=== PATIENT | female | born 1930 | race Caucasian/White ===

== ENCOUNTER 2016-08-23 01:16 | Inpatient (IN) | payer MEDICARE, BC ==
[~2016-08-23] VITALS: Ht 157.5 cm; Wt 62.9 kg
--- NOTE | ~2016-08-23 | CON ---
PATIENT'S NAME: AIDEN METZ [facility] AGE: 86 Y [address] ROOM: [place] [address] LOCATION: [facility] ADMIT DATE: 08/23/2016 Consultation DISCHARGE DATE: FAMILY PHYSICIAN: PHYSICIAN, UNKNOWN ATTENDING PHYSICIAN: YENNY DANIELS V DATE OF CONSULTATION: 08/23/2016 REFERRING PHYSICIAN: KLAUS RODRIGUEZ MD CHIEF COMPLAINT: Right parietal intraparenchymal hemorrhage, T12 compression fracture. HISTORY OF PRESENT ILLNESS: The patient is an 86-year-old female patient who had a fall a few days ago that resulted in acute T12 compression fracture, was found on noncontrast CT head that was done yesterday to have a large right parietal intraparenchymal hemorrhage. The patient was receiving treatment at [facility]. Over there, she was treated for fracture pain. She was diagnosed to have non- STEMI myocardial infarct. Cardiac catheterization was done, and bare-metal stents were inserted. The patient was given Plavix for the procedure and subsequently was continued on Plavix and aspirin. Yesterday, the patient started having confusion. It was felt that it could be related to Lyrica and pain medications. The confusion worsened. Eventually, noncontrast CT head was done, and that showed the hemorrhage. I was contacted. I discussed the case with the referring physician. I recommended transferring the patient over for further investigations as well as holding the Plavix and aspirin. I met the patient on the neurotrauma unit. She was confused. History gathering from the patient herself was limited. I relied on the referral notes and the admitting physician's note. REVIEW OF SYSTEMS: Unobtainable given the patient's confusion. MEDICATIONS: Listed in the patient's chart. Essentially, this patient was on: 1. Plavix. 2. Aspirin. 3. Xarelto was added as well. PAST MEDICAL AND SURGICAL HISTORY: Degenerative spine disease, DVT, PE, on chronic anticoagulation. FAMILY HISTORY: Reviewed and noncontributory to the patient's presentation. PATIENT'S NAME: AIDEN METZ [facility] AGE: 86 Y [address] ROOM: [place] [address] LOCATION: [facility] ADMIT DATE: 08/23/2016 Consultation DISCHARGE DATE: FAMILY PHYSICIAN: PHYSICIAN, UNKNOWN ATTENDING PHYSICIAN: YENNY DANIELS V SOCIAL HISTORY: Ex-smoker. Lives in an assisted living facility. ALLERGIES: LISTED IN THE PATIENT'S CHART. PHYSICAL EXAMINATION: GENERAL: The patient is confused. She is cooperative. VITAL SIGNS: Systolic blood pressure is less than 160. Afebrile. HEENT: Head: Atraumatic. The pupils are 3 mm and reactive. Sclerae examination is normal. NECK: No tenderness to palpation. No palpable masses. RESPIRATORY: She is not in any respiratory distress. CARDIOVASCULAR: She has palpable pulses in the upper extremities. BACK: Not done. NEUROLOGIC: She is alert and oriented only to herself. Pupils are 3 mm and reactive. Face is symmetric. Naming is limited. She follows simple commands. She has mild weakness in the left upper and lower extremities. Sensory examination is not reliable. INVESTIGATIONS: 1. Noncontrast CT head done at [facility] on August 22, 2016, which I personally reviewed. It showed evidence of a large right parietal intraparenchymal hemorrhage with moderate dutch-hemorrhage edema. No evidence of fractures. It also showed evidence of age-related global brain atrophy. 2. Lumbar spine x-ray done on August 18, 2016, which I personally reviewed. It showed evidence of multilevel lumbar degenerative disk disease. It showed evidence of T12 and L4 compression fractures. It also showed evidence of L4-5 degenerative spondylolisthesis. 3. Noncontrast CT head done at our hospital on August 23, 2016, at 11 a.m. Again, it showed large right parietal intraparenchymal hemorrhage. No significant change in the size of the hemorrhage. No other hemorrhages were seen. IMPRESSION AND PLAN: An 86-year-old female patient who had a fall a few days ago that resulted in T12 and L4 compression fractures. Also had non-ST elevation myocardial infarction heart attack for which bare-metal stents were inserted at [facility]. The patient was started on aspirin and Plavix, and Xarelto was added. She was confused yesterday, and a noncontrast CT head showed large right parietal intraparenchymal hemorrhage. The etiology of the hemorrhage can be due to anticoagulation, as a result of trauma, or hypertension related. [facility] 86 Y [address] ROOM: [id number] [place], [place] [address] LOCATION: [facility] ADMIT DATE: 08/23/2016 Consultation DISCHARGE DATE: FAMILY PHYSICIAN: PHYSICIAN, UNKNOWN ATTENDING PHYSICIAN: YENNY DANIELS V I discussed the situation with the patient's son (Anthony) who is the power of sports attorney. I clearly indicated that his mother's situation is complicated given the recent insertion of bare-metal stents and the large right parietal hemorrhage. I recommended right craniotomy and evacuation of the hematoma to be done as soon as possible. I discussed the surgery itself, the benefits, and all the risks associated with it. I also discussed hospital stay and recovery. I also discussed the postoperative course which will include repeating the noncontrast CT head. If the postoperative noncontrast CT head showed no rebleeding, then the patient will be started on aspirin to try to prevent in-stent thrombosis and another myocardial infarct. The patient's son asked appropriate questions, and those were answered to his satisfaction. He was interested in proceeding with surgery, so the surgery is scheduled on August 24, 2016, I also ordered thoracic and lumbar spine CT scans to better assess the T12 and L4 compression fractures. If the patient is very symptomatic from those fractures, then she may benefit from T12 and possible L4 vertebroplasty. It was a pleasure taking care of this patient, and thank you for having us involved. MD SYDNIE SIMMONS/christianne /[id number] CC: Yenny Daniels MD d: 08/23/16 1225 t: 08/24/16 1639, CONSULTATION REPORT
--- NOTE | ~2016-08-23 | OR ---
PATIENT'S NAME: BECKY PEREZE [facility] AGE: 86 Y [address] ROOM: [place] [address] LOCATION: [facility] ADMIT DATE: 08/23/2016 OR/Procedure Report DISCHARGE DATE: FAMILY PHYSICIAN: Trudy Raymond MD ATTENDING PHYSICIAN: YENNY DANIELS V SURGEON: Yannick Teague MD FRANCHISE SALES MANAGER: DATE OF PROCEDURE: 08/24/2016 ANESTHESIOLOGIST: Young Ortiz MD ANESTHESIA: General. COMPLICATIONS: None. ESTIMATED BLOOD LOSS: Minimal. PREOPERATIVE DIAGNOSIS: Large right parietal intraparenchymal hemorrhage. POSTOPERATIVE DIAGNOSIS: Large right parietal intraparenchymal hemorrhage. PROCEDURES PERFORMED: 1. Stealth navigation system for evacuation of right parietal intraparenchymal hemorrhage. 2. Right parietal craniotomy and evacuation of intraparenchymal hemorrhage. CLINICAL HISTORY: The patient is an 86-year-old female patient who was initially admitted to [facility] with a main diagnosis of T12 compression fracture. She was transferred to our hospital on August 23, 2016, after a noncontrast CT head showed large right parietal intraparenchymal hemorrhage. Apparently, the patient had non-STEMI at [facility] for which cardiac catheterization and stent placement was done. She was given a loading dose of Plavix during the procedure and continued on Plavix and aspirin afterward. She started having confusion and headaches, and the CT scan showed the hemorrhage. The patient's neurological examination was remarkable for confusion, disorientation, mild left-sided weakness, and left- sided neglect. The patient had repeat a noncontrast CT head, and that showed mild increase in the size of the hemorrhage. I discussed the situation with the family. I discussed the treatment options. Given the recent placement of bare-metal stents and the need for antiplatelet therapy, I recommended the above-mentioned surgery to try to evacuate the hematoma and hopefully, if no rebleeding found on postoperative imaging, the patient will be started on aspirin first and hopefully Plavix later. I discussed the risks and benefits. The patient's family were interested in proceeding. Signed informed consent was obtained, and the patient was brought for surgery. [facility] 86 Y [address] ROOM: [id number] [place] [id number] LOCATION: [facility] ADMIT DATE: 08/23/2016 OR/Procedure Report DISCHARGE DATE: FAMILY PHYSICIAN: Trudy Raymond MD ATTENDING PHYSICIAN: YENNY DANIELS V DESCRIPTION OF PROCEDURE: The patient was seen in the preoperative care unit, and the correct side was marked. Then, she was transferred to the main operating theater, was given general anesthetic, and underwent endotracheal intubation without complications. Preoperative antibiotics and mannitol were given. Calf compressors, Smith catheter, arterial line, and a central line were used throughout the procedure. The patient was positioned in a semilateral position with the right side up. The patient's head was clamped in 3-pins Diane and secured to the table. The right parietal scalp was exposed. Then, the patient was registered to the enGreet navigation system with good accuracy. I navigated the extent of the hematoma on the scalp, and based on that, a linear incision was marked. Hair overlying the incision was clipped off. Surgical site was prepped and draped as per usual. The proposed skin incision was infiltrated with 0.25% Marcaine with epinephrine. Skin was sharply opened down to the bone, and skin flaps were reflected anterior and posterior. Again, the Stealth was used to navigate the hematoma extent on the skull, and based on that, one bur hole was fashioned down to the dura. Then, the bone flap was turned and elevated without complications. I then navigated the extent of the hematoma on the dura. Then, the dura was opened in a cruciate fashion. Then, I proceeded to the hematoma evacuation. The corticotomy site was navigated using the Stealth. Then, using bipolar and suction, a corticotomy was made and deepened. Immediately, I came across a very large hematoma. The hematoma was completely evacuated using suction and cautery. As expected, I got into the atrium/occipital horn of the left lateral ventricle, and that entry was sealed using DuraGen. I was satisfied with the hematoma evacuation, so I proceeded to hemostasis and closure. The wound was copiously irrigated. The wound was lined up with Surgicel. Then, the dura was approximated with 4-0 Nurolon. DuraGen was placed on the dura. Bone flap was anchored to the skull with titanium plates and mini screws. The wound was then washed with bacitracin irrigation. The skin was then closed in layers with 2-0 Vicryl to the galea and nimo for the skin. Sterile dressing was applied. At the end of the operation, the instrument and sponge counts were correct. The patient tolerated the operation without any complications. YANNICK TEAGUE MD PATIENT'S NAME: JOHANNA PEREZ [facility] AGE: 86 Y [address] ROOM: [place] [address] LOCATION: [facility] ADMIT DATE: 08/23/2016 OR/Procedure Report DISCHARGE DATE: FAMILY PHYSICIAN: Trudy Raymond MD ATTENDING PHYSICIAN: YENNY DANIELS/christianne /[id number] CC: MD Trudy Guy MD d: 08/24/16 1726 t: 08/25/16 0921, OPERATIVE SUMMARY
--- NOTE | ~2016-08-23 | HP ---
PATIENT'S NAME: JOHANNA PEREZ [facility] AGE: 86 Y [address] ROOM: [id number] [place], [place] [address] LOCATION: [facility] ADMIT DATE: 08/23/2016 History & Physical DISCHARGE DATE: FAMILY PHYSICIAN: PHYSICIAN, UNKNOWN ATTENDING PHYSICIAN: YENNY DANIELS V DATE OF SERVICE: CHIEF COMPLAINT: Transfer for higher level of care. HISTORY OF PRESENT ILLNESS: The patient is an 86-year-old female with past medical history further described below. The patient is being transferred here from [facility]. She initially presented to [facility] several days ago after sustaining a fall with an acute T12 fracture. The patient was evaluated by Spine Surgery at that point, and no surgical interventions were offered. In the course of the hospital stay, the patient was complaining of chest pain and was found to have a non-STEMI. At this point, she was on Coumadin for history of PE. Coumadin was discontinued and reversed. She received aspirin and a loading dose of 300 mg of Plavix and has undergone a cardiac catheterization with placement of a bare-metal stent 2 days ago. Aspirin and Plavix were continued. The patient was already observed to be somewhat altered, but that was described to delirium/medication effects from Lyrica, fentanyl, and Ambien. The patient is on this regimen for severe spinal stenosis. Her delirium did not improve. Last night, the patient developed a run of atrial fibrillation with rapid ventricular response. She did not receive any beta blockers due to a prolonged first-degree AV block, but she was started on Xarelto. Her delirium worsened, and a stat CAT scan of her head was ordered and read at approximately 11:30 p.m. last night, which is 4 hours from now. She was found to have a large 4.6 x 2.7 cm right parietal intraparenchymal hemorrhage with local edema and mass effect but no shift. The patient was discussed with Dr. Teague, who accepted her transfer and requested a hospitalist admission. At this point, the patient is being seen on neurotrauma soon after her arrival. She is complaining of headache as well as nausea, albeit nausea has improved. Denies any chest pain, shortness of breath, or palpitations. REVIEW OF SYSTEMS: All systems have been reviewed and are negative aside from pertinent positives mentioned above. [facility]GE: 86 Y [address] ROOM: [place] [address] LOCATION: [facility] ADMIT DATE: 08/23/2016 History & Physical DISCHARGE DATE: FAMILY PHYSICIAN: PHYSICIAN, UNKNOWN ATTENDING PHYSICIAN: YENNY DANIELS V PAST MEDICAL HISTORY: 1. Degenerative spine disease, chronic pain. 2. 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 SOCIAL HISTORY: The patient was a smoker and quit approximately 20 years ago. She was living independently until several weeks ago when she moved into assisted living facility. FAMILY HISTORY: Reviewed and noncontributory due to advanced age and known underlying etiology for her presentation. HOME MEDICATIONS: 1. Fentanyl patch 25 mcg. 2. Vitamin D3. 3. Robitussin. 4. PreserVision. 5. Pantoprazole. 6. MiraLAX. 7. Nitroglycerin. 8. Lyrica 150 b.i.d. 9. Lexapro 20. 10. Imodium. 11. Ibuprofen. 12. Hyoscyamine. 13. Hydrocodone. 14. Acetaminophen. 15. Coumadin. 16. Aleve. 17. Aggrenox. 18. Clobetasol. 19. Calcium with vitamin D. 20. Ambien. PHYSICAL EXAMINATION: VITAL SIGNS: At this point, her blood pressure is 150/80, heart rate is in the 80s, saturating 96% on 2 L nasal cannula, afebrile, respirations 16. GENERAL: Appears as an elderly and frail female, in no acute distress. NEUROLOGICAL: The patient is alert and oriented to herself and place and is able to tell me the year. She is also appropriate and answering some questions but not all. Her strength is 4/5 on her right upper extremity proximally and distally, and 4/5 on her right lower extremity proximally and distally, 5/5 on the left side. There is no fixed gaze. No significant neglect. PATIENT'S NAME: JOHANNA PEREZ [facility] AGE: 86 Y [address] ROOM: [place] [address] LOCATION: [facility] ADMIT DATE: 08/23/2016 History & Physical DISCHARGE DATE: FAMILY PHYSICIAN: PHYSICIAN, UNKNOWN ATTENDING PHYSICIAN: YENNY DANIELS V EYES: Show pupils are equal and reactive to light. LYMPHATIC: Shows no cervical lymphadenopathy. ENDOCRINE: Shows no thyromegaly. LUNGS: Clear to auscultation. HEART: Reveals regular rate and rhythm with 2/6 harsh systolic murmur. There is no jugular venous distention or lower extremity edema. GI: Abdomen is soft, nontender, nondistended. : No costovertebral angle tenderness. VASCULAR: Shows 2+ pedal pulses. MUSCULOSKELETAL: Shows tenderness to palpation over her lumbar and thoracic spine. 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 PSYCHIATRIC: Reveals appropriate mood, cognition, affect. REVIEW OF STUDIES: Significant for recent CAT scan with the findings as described in the HPI. ASSESSMENT AND PLAN: This is an 86-year-old female admitted with: 1. Intracerebral hemorrhage; I have discussed the management with Dr. Teague, and at this point, we will monitor the patient's neurologic status and repeat a CAT scan in the morning. We have discussed potentially giving her platelets given recent Plavix loading dose and maintenance therapy, though would like to get an input from Cardiology first. 2. Non-ST elevation myocardial infarction, status post bare-metal stent. I have placed a call with [facility] regarding guidance for anti-platelet agents in this complicated clinical scenario, but I have not heard back yet. We will request a Cardiology consultation in the morning to help us manage her non-ST elevation myocardial infarction as well as atrial fibrillation as well as first-degree atrioventricular block. 3. T12 fracture. We will provide the patient with symptomatic support. 4. Encephalopathy due to intracerebral hemorrhage. We will monitor neurologic status. 5. Symptomatic support. We will provide her with a Smith catheter and antiemetics and Tylenol for her headache. 6. Goals of care. I have inquired about goals of care, and the family would like her to be DNR, and the patient actually confirmed that, and we will respect those wishes. Additional management will depend on clinical course. Time dedicated to this patient's encounter is 35 minutes. PATIENT'S NAME: JOHANNA PEREZ [facility] AGE: 86 Y [address] ROOM: [place] [address] LOCATION: [facility] ADMIT DATE: 08/23/2016 History & Physical DISCHARGE DATE: FAMILY PHYSICIAN: PHYSICIAN, BRYAN ATTENDING PHYSICIAN: YENNY DANIELS V MD MILLIE TELLO/modl /[id number] D: [id number] T: [id number] HISTORY & PHYSICAL
--- NOTE | ~2016-08-23 | DS ---
PATIENT'S NAME: JOHANNA PEREZ [facility] AGE: 86 Y [address] ROOM: [place] [address] LOCATION: [facility]U ADMIT DATE: 08/23/2016 Discharge Summary DISCHARGE DATE: 09/04/2016 FAMILY PHYSICIAN: Trudy Raymond MD ATTENDING PHYSICIAN: Delgado Escobar V CONSULTING PHYSICIANS: Dr. Teague, Neurosurgery and Jefferson Hahn APRN, Cardiology for Dr. Karen Mac. DISCHARGE DIAGNOSES: 1. Large right parietal intraparenchymal hemorrhage, status post craniotomy for evacuation on 09/03/2016. 2. Escherichia coli urinary tract infection, status post treatment. 3. Coronary artery disease/non-ST elevation myocardial infarction, status post bare mental stent placement. 4. Paroxysmal atrial fibrillation, long-term anticoagulation currently held. 5. History of deep venous thrombosis and pulmonary embolism, not currently anticoagulated given history of bleed. 6. T12 and L4 compression fracture, stable. 7. Degenerative spine disease, chronic pain. 8. Chronic hypoxic respiratory failure, on chronic O2 of 2 L. DISCHARGE MEDICATIONS: 1. ASA 81 mg daily. 2. Lipitor 20 mg p.o. q.h.s. 3. B-complex one tablet p.o. daily. 4. Calcium with vitamin D3, 500 mg p.o. daily. 5. Vitamin D 1000 units p.o. daily. 6. Plavix 75 mg p.o. daily. 7. Colace 100 mg p.o. b.i.d. 8. Lexapro 20 mg p.o. daily. 9. Hyoscyamine sulfate 0.375 mg p.o. q.12 hours p.r.n. secretions. 10. Multivitamin 1 tablet p.o. daily. 11. Seville-3 fish oil 1000 mg p.o. daily. 12. Protonix 40 mg p.o. b.i.d. 13. MiraLAX 17 g p.o. b.i.d. 14. Lyrica 50 mg p.o. twice daily. 15. Lyrica 50 mg two tablets p.o. q.a.m. 16. Tylenol 325 mg two tablets every 4 hours p.r.n. for pain or fever. 17. Florastor 250 mg p.o. twice daily for additional two weeks. GI prophylaxis. 18. [place] 5/325 one tablet every 4 hours p.r.n. pain. 19. Mylanta 20 mL p.o. q.4 hours p.r.n. indigestion. 20. Artificial Tears q.i.d. p.r.n. dry eye. 21. Dulcolax suppository 10 mg rectally every day p.r.n. constipation. PATIENT'S NAME: JOHANNA PEREZ [facility] AGE: 86 Y [address] ROOM: [place] [address] LOCATION: TU ADMIT DATE: 08/23/2016 Discharge Summary DISCHARGE DATE: 09/04/2016 FAMILY PHYSICIAN: Trudy Raymond MD ATTENDING PHYSICIAN: Delgado Escobar V 22. Melatonin 3 mg p.o. q.h.s. p.r.n., may repeat 3 mg dose after 1 hour of initial dose if needed. 23. Nitrostat 0.5 mg sublingually p.r.n. chest pain. 24. Robitussin 10 mg p.o. q.4 hours p.r.n. cough. 25. Imodium 4 mg p.o. x1 after first loose stool, then one 2-mg tablet after each following diarrheal stool, not to exceed 8 tablets in a day. 26. PreserVision 1 tablet twice daily. 27. O2, 2 L by nasal cannula continuously. DISCONTINUED MEDICATIONS: 1. Aggrenox. 2. Ambien. 3. Warfarin. 4. Naproxen. PROCEDURES: On 08/24/2016, Dr. Teague performed a [employer] navigation system for evacuation of the right parietal intraparenchymal hemorrhage and a right parietal craniotomy and evacuation of intraparenchymal hemorrhage. Please see his op summary. HOSPITAL COURSE: Please refer to the admitting H and P dictated by Dr. Escobar on 08/23/2016 for more detailed outline of the patient's initial presentation and need for transfer to higher level of care. The patient was then seen in consultation by Dr. Teague, and ultimately, the patient was taken to the OR for the right craniotomy and evacuation of the hematoma on 08/24/2016. The patient tolerated the procedure well. Her compression fractures were treated conservatively. Cardiology was also asked to consult for management given her recent STEMI and bare metal stent placement. The patient was held in the ICU postoperatively. Cardiac enzymes were followed and stable. The patient remained in sinus rhythm postoperatively. The patient was ultimately transferred to the NTU on 08/25/2016. The patient continued on O2 chronically as she did as an outpatient. The patient did have difficulties with insomnia throughout her hospitalization. Melatonin was used to try to help manage this given the need for narcotics to help with her compression fractures and chronic pain. Ultimately, the patient was started back on baby aspirin. The patient complained of dysuria, and a UA was obtained, which did show suspicion for urinary tract infection. Culture ultimately grew out E. coli greater than 100,000 colonies. The patient was treated for this with three days of IV ceftriaxone of which the sensitivity was positive for on the micro panel. Ultimately, the Plavix was initiated at 75 mg once daily on 09/01/2016. A repeat CT scan was obtained on 09/04/2016, which showed stability and no acute issues with bleed or hemorrhage. Ultimately, the patient was felt stable for discharge. The patient was discharged to [facility] on 09/04/2016 where PATIENT'S NAME: JOHANNA PEREZ [facility] AGE: 86 Y [address] ROOM: [id number] [place] [address] LOCATION: [facility] ADMIT DATE: 08/23/2016 Discharge Summary DISCHARGE DATE: 09/04/2016 FAMILY PHYSICIAN: Trudy Raymond MD ATTENDING PHYSICIAN: Delgado Escobar V she will receive prison care until able to progress back to assisted living status. The patient voiced understanding of this plan. The patient can adhere to a regular cardiac diet and she should adhere to 2 L of O2 to keep her sats greater than 90%, which is chronic for her. She needs to follow up with Dr. Feliciano to discuss long-term anticoagulation and anti-platelet therapy. The patient should follow up with Dr. Feliciano in 2 to 3 weeks. She should see Dr. Raymond in [address] Teague will see the patient back on 09/26/[address] Teague did review her nimo before discharge today. The patient voiced verbal understanding of this plan as did the daughter who was present at the time of discharge. I did attempt to visit with Dr. Raymond and did leave a voice mail concerning the patient's discharge and planning. Discharge of this patient took greater than 60 minutes and included coordinating care with multidisciplinary services reviewing medications, visiting with social work and family. CELESTINO CARROLL PA-C FOR MD ARTEMIO GARCIA/christianne /[id number] CC: MD Ynanick Lazaro MD Ishrat A Saif, MD d: 09/05/16 0301 t: 09/19/16 0914, DISCHARGE SUMMARY
--- NOTE | ~2016-08-23 | CON ---
PATIENT'S NAME: BECKY PEREZE [facility] AGE: 86 Y [address] ROOM: [id number] [place] [address] LOCATION: [facility] ADMIT DATE: 08/23/2016 Consultation DISCHARGE DATE: FAMILY PHYSICIAN: PHYSICIAN, UNKNOWN ATTENDING PHYSICIAN: YENNY DANIELS V DATE OF CONSULTATION: 08/23/2016 REFERRING PHYSICIAN: KLAUS RODRIGUEZ MD REASON FOR CARDIOLOGY CONSULT: Need for cardiac management in the setting of recent bare-metal stenting to the RCA as well as paroxysmal atrial fibrillation with anticoagulation with subsequent intracranial hemorrhage. HISTORY OF PRESENT ILLNESS: This 86-year-old female initially presented to [facility] Emergency Department after a fall and imaging revealed a T12 fracture. All of her history is from chart review due to the patient's current pleasant confusion. She is unsure of full medical details and at this time is only concerned where her family is at. It appears in the emergency department she had documented ST depressions as well as troponin levels of 0.07 as well as 0.08. Due to this, she was subsequently taken to the catheterization suite by Dr. Feliciano and categorized as an [id number] myocardial infarction. She received a bare-metal stent to her RCA. Post-procedure, it was noted that she developed confusion as well as atrial fibrillation, so she was started on Xarelto. The patient's confusion did not resolve and continue to progress, so a head CT was performed, which showed a large 4.6 x 2.7 cm parietal intraparenchymal hemorrhage with local edema. Due to this, the patient was transferred to [facility] for Neurosurgery evaluation. Current plan of care is to proceed with a surgical evacuation of the hematoma on 08/24/2016. Once again, at the time of this consult, she is resting comfortably in bed, in no acute distress other than wanting to know where her family is at. PAST MEDICAL HISTORY: 1. 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 2. Hypertension. 3. GERD. 4. Spinal stenosis. 5. Macular degeneration. PAST SURGICAL HISTORY: 1. Hysterectomy. 2. Rotator cuff surgery x2. 3. Recent bare-metal stenting to the RCA in August of 2016. [facility] 86 [facility] [address] ROOM: [id number] [place], [place] [address] LOCATION: [facility] ADMIT DATE: 08/23/2016 Consultation DISCHARGE DATE: FAMILY PHYSICIAN: PHYSICIAN, UNKNOWN ATTENDING PHYSICIAN: YENNY DANIELS V FAMILY HISTORY: The patient's mother had a history of colon cancer. SOCIAL HISTORY: The patient is a former cigarette smoker. She smoked 1 pack of cigarettes per day for a total of 40 years and quit smoking in 1996. No history of alcohol or illicit drug use. CURRENT MEDICATIONS: 1. 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 2. Colace 100 mg p.o. 3 times daily. MEDICATION ALLERGIES: Celebrex causing upset stomach. REVIEW OF SYSTEMS: Review of systemsattempted to be reviewed with the patient, but she is unsure of past medical details. Overall, she denies any complaints of dizziness, loss of consciousness, chest pain, shortness of breath, nausea or vomiting. She does admit to having an occipital headache. All other review of systems attempted to be assessed and evaluated, but once again unable to be fully detailed due to her level of confusion. PHYSICAL EXAMINATION: VITAL SIGNS: Temperature 97.6, pulse 72, respirations 16, blood pressure 158/76, and O2 saturation 93% on 2 L nasal cannula. The patient weighs 63.4 kg. SKIN: Louann, warm, and dry. EYES: Sclerae clear. No xanthelasmas. ENT: Oral mucosa is pink and moist. No jugular venous distention or carotid bruits. CHEST: Respirations are even and unlabored. Lung sounds are clear to bilateral upper lobes. They are diminished to bilateral lower lobes. HEART: Regular rate and rhythm. Does have the presence of a 2/6 murmur. ABDOMEN: Soft, nontender. MUSCULOSKELETAL: Equal muscle strength to upper and lower extremities bilaterally against resistance. EXTREMITIES: Peripheral pulses palpable. No clubbing, cyanosis, or edema. PSYCH: Disoriented to place and time, and is pleasantly confused. IMPRESSION AND PLAN: Per Dr. Karen Mac: 1. Recent bare-metal stenting to the right coronary artery for elevated cardiac enzymes and documented ST depressions on EKG performed at [facility]. She was previously PATIENT'S NAME: JOHANNA PEREZ [facility] AGE: 86 Y [address] ROOM: [id number] [place], [place] [address] LOCATION: [facility] ADMIT DATE: 08/23/2016 Consultation DISCHARGE DATE: FAMILY PHYSICIAN: PHYSICIAN, UNKNOWN ATTENDING PHYSICIAN: YENNY DANIELS V on aspirin and Plavix, which are currently on hold due to diagnosis, acute intracranial hemorrhage for which patient was transferred here for Neurosurgical care. 2. Acute intracranial hemorrhage. Plan is to proceed with neurosurgery evacuation. 3. Paroxysmal atrial fibrillation. Was previously on Xarelto, but has been discontinued due to diagnosis, acute intracranial hemorrhage. 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 4. Frequent falls with a current T12 fracture. No plans for surgical intervention on that at this time. 5. Previous history of deep vein thrombosis and pulmonary embolism with long- term anticoagulation with Coumadin, which is currently off and was reversed at [facility] prior to her coronary stenting. Agree with holding all antiplatelets and anticoagulation in the setting of acute intracranial hemorrhage. We will need to restart at least her aspirin and preferably her Plavix to maintain stent patency once okay with Neurosurgery. Once again, this is an 86-year-old female who is at high risk of stent thrombosis as well as perioperative cardiovascular events given her recent bare-metal stenting to the right coronary artery. We understand the need to hold antiplatelets for the acute intracranial hemorrhage, but there are no other good options for antiplatelet or anticoagulation given this acute diagnosis. We will get a baseline cardiac enzymes as well as EKG, and we will recommend a serial cardiac enzyme evaluation in the perioperative period. She will need monitored closely, but no further testing is required prior to this urgent surgery. Once again, we will recommend restarting antiplatelets once okay with Neurosurgery. We will continue to monitor, evaluate, and treat as appropriate. Thank you for this consult. Thank you for allowing [facility] to interact in the care of this patient. RELL BOO APRN FOR MD ELLIE BRUSH/christianne /[id number] d: 08/24/16 0707 t: 09/07/16 1242, CONSULTATION REPORT
[2016-08-23 03:51] LABS: BASOPHIL % 0.1 %; EOSINOPHIL % 0.6 %; HEMATOCRIT 35.6 % (30.0-46.0); HEMOGLOBIN 11.3 g/dL (10.0-15.0); IMMATURE GRANULOCYTE % 0.3 %; LYMPHOCYTE # 0.7 K/uL (0.8-4.0); LYMPHOCYTE % 9.6 %; MCH 30.1 pg (27.0-34.0); MCHC 31.7 gm/dL (32.0-36.5); MCV 94.9 fl (83.0-98.0); MONOCYTE # 0.4 K/uL (0.0-1.0); MONOCYTE % 5.4 %; MPV 9.7 fl (9.4-12.4); NEUTROPHIL # (ANC) 5.9 K/uL (1.8-7.8); NRBC % 0 /100WBC (0-0.00); PLATELET COUNT 136 K/uL (150-450); RBC 3.75 M/uL (3.00-5.00); RDW-CV 13.7 % (11.9-14.6); WBC 7.1 K/uL (4.0-11.0)
[2016-08-23 04:11] LABS: ALBUMIN 3.2 gm/dL (3.5-5.0); ALK PHOS 85 IU/L (33-138); ALT 18 IU/L (12-78); AST 19 IU/L (10-40); BLOOD UREA NITROGEN 15 mg/dL (6-24); CALCIUM 8.3 mg/dL (8.5-10.5); CHLORIDE 100 mMol/L (96-110); CREATININE 0.7 mg/dL (0.5-1.1); ESTIMATED GFR (MDRD EQUATION) > 60; MAGNESIUM 2.3 mg/dL (1.8-2.6); POTASSIUM 4.1 mMol/L (3.7-5.1); SODIUM 138 mMol/L (135-145); TOTAL BILIRUBIN 0.5 mg/dL (0.0-1.5); TOTAL PROTEIN 7.2 g/dL (6.0-8.4)
[2016-08-23 04:12] LABS: ANION GAP 7.1 (10.0-19.0); CO2 35 mMol/L (22-32); PHOSPHORUS 1.2 mg/dL (2.5-4.9)
[2016-08-23] MEDS ORDERED: LEXAPRO20 MG PO (10:26)
[2016-08-23] MEDS ORDERED: OSCIMIN SR0.375 MG PO (10:27)
[2016-08-23] MEDS ORDERED: AGGRENOX 25 MG1 EACH PO (10:28)
[2016-08-23] MEDS ORDERED: PROTONIX40 MG PO (10:29)
[2016-08-23] MEDS ORDERED: AMBIEN10 MG PO (10:30)
[2016-08-23] MEDS ORDERED: AMBIEN5 MG PO (10:31)
[2016-08-23] MEDS ORDERED: LYRICA 100MG C100 MG PO (10:33)
[2016-08-23] MEDS ORDERED: LYRICA 50MG CAP50 MG PO (10:33)
[2016-08-23] MEDS ORDERED: COUMADIN 4MG **4 MG PO ×2 (10:35→10:36)
[2016-08-23] MEDS ORDERED: DURAGESIC 25MC25 MCG TRANS (10:39)
[2016-08-23] MEDS ORDERED: NITROSTAT0.4 MG SL (10:40)
[2016-08-23] MEDS ORDERED: TYLENOL325 MG PO (10:42)
[2016-08-23] MEDS ORDERED: ADVIL200 MG PO (10:43)
[2016-08-23] MEDS ORDERED: MAALOX ADVANCE355 ML PO (10:44)
[2016-08-23] MEDS ORDERED: NORCO 5-325 TA1 EACH PO (10:45)
[2016-08-23] MEDS ORDERED: MILK OF MA400 MG/5 M PO (10:46)
[2016-08-23] MEDS ORDERED: ROBITUSSIN100 MG/5 M PO (10:52)
[2016-08-23] MEDS ORDERED: IMODIUM A-D2 MG PO (10:54)
[2016-08-23] MEDS ORDERED: ALEVE220 MG PO (10:55)
[2016-08-23] MEDS ORDERED: CALCIUM 500 +1 EACH PO (10:57)
[2016-08-23] MEDS ORDERED: FISH OIL 1,0001 EAC1 PO (10:58)
[2016-08-23] MEDS ORDERED: CLOBETASOL EMOL15 GM TOP (10:58)
[2016-08-23] MEDS ORDERED: FLAX SEED OIL1000 MG PO (10:59)
[2016-08-23] MEDS ORDERED: MIRALAX PO527 GM/BOT PO (11:00)
[2016-08-23] MEDS ORDERED: PRESERVISION A1 EACH PO (11:00)
[2016-08-23] MEDS ORDERED: VITAMIN D1000 UNIT PO (11:01)
[2016-08-23] MEDS ORDERED: B COMPLEX1 EACH PO (11:01)
[2016-08-23 21:08] LABS: BASOPHIL % 0.2 %; EOSINOPHIL # 0.1 K/uL (0.0-0.5); HEMATOCRIT 34.6 % (30.0-46.0); IMMATURE GRANULOCYTE % 0.3 %; LYMPHOCYTE # 0.9 K/uL (0.8-4.0); LYMPHOCYTE % 13.8 %; MCH 29.8 pg (27.0-34.0); MCHC 31.8 gm/dL (32.0-36.5); MCV 93.8 fl (83.0-98.0); MONOCYTE # 0.4 K/uL (0.0-1.0); MONOCYTE % 6.1 %; MPV 9.6 fl (9.4-12.4); NEUTROPHIL % 77.6 %; NRBC % 0 /100WBC (0-0.00); PLATELET COUNT 114 K/uL (150-450); RBC 3.69 M/uL (3.00-5.00); RDW-CV 13.7 % (11.9-14.6); WBC 6.4 K/uL (4.0-11.0)
[2016-08-23 22:57] LABS: INR - (THERAPEUTIC) 1.05 (0.92-1.07)
[2016-08-24 04:11] LABS: BASOPHIL % 0.2 %; EOSINOPHIL # 0.2 K/uL (0.0-0.5); EOSINOPHIL % 2.4 %; HEMATOCRIT 35.4 % (30.0-46.0); HEMOGLOBIN 11.1 g/dL (10.0-15.0); IMMATURE GRANULOCYTE % 0.5 %; LYMPHOCYTE # 0.7 K/uL (0.8-4.0); MCH 29.8 pg (27.0-34.0); MCHC 31.4 gm/dL (32.0-36.5); MCV 94.9 fl (83.0-98.0); MONOCYTE # 0.3 K/uL (0.0-1.0); MONOCYTE % 5.3 %; MPV 10.5 fl (9.4-12.4); NEUTROPHIL # (ANC) 5.2 K/uL (1.8-7.8); NEUTROPHIL % 80.6 %; NRBC % 0 /100WBC (0-0.00); PLATELET COUNT 126 K/uL (150-450); RBC 3.73 M/uL (3.00-5.00); RDW-CV 13.8 % (11.9-14.6); WBC 6.4 K/uL (4.0-11.0)
[2016-08-24 04:28] LABS: ALBUMIN 2.9 gm/dL (3.5-5.0); ALK PHOS 80 IU/L (33-138); ALT 23 IU/L (12-78); ANION GAP 10.1 (10.0-19.0); AST 31 IU/L (10-40); BLOOD UREA NITROGEN 11 mg/dL (6-24); CHLORIDE 105 mMol/L (96-110); CO2 29 mMol/L (22-32); CREATININE 0.5 mg/dL (0.5-1.1); ESTIMATED GFR (MDRD EQUATION) > 60; POTASSIUM 4.1 mMol/L (3.7-5.1); SODIUM 140 mMol/L (135-145); TOTAL BILIRUBIN 0.6 mg/dL (0.0-1.5); TOTAL PROTEIN 6.7 g/dL (6.0-8.4)
[2016-08-24 15:20] LABS: HEMATOCRIT 32.9 % (30.0-46.0); HEMOGLOBIN 10.3 g/dL (10.0-15.0)
[2016-08-24 15:31] LABS: INR - (THERAPEUTIC) 1.02 (0.92-1.07); PROTIME 10.7 SECONDS (9.8-11.4)
[2016-08-25 05:24] LABS: ALBUMIN 2.7 gm/dL (3.5-5.0); ALK PHOS 71 IU/L (33-138); ALT 20 IU/L (12-78); ANION GAP 10.4 (10.0-19.0); AST 20 IU/L (10-40); BLOOD UREA NITROGEN 11 mg/dL (6-24); CHLORIDE 109 mMol/L (96-110); CO2 28 mMol/L (22-32); CREATININE 0.5 mg/dL (0.5-1.1); ESTIMATED GFR (MDRD EQUATION) > 60; POTASSIUM 3.4 mMol/L (3.7-5.1); SODIUM 144 mMol/L (135-145); TOTAL BILIRUBIN 0.5 mg/dL (0.0-1.5); TOTAL PROTEIN 6.3 g/dL (6.0-8.4)
[2016-08-25 05:27] LABS: BASOPHIL % 0.1 %; EOSINOPHIL # 0.1 K/uL (0.0-0.5); EOSINOPHIL % 0.8 %; HEMATOCRIT 30.2 % (30.0-46.0); HEMOGLOBIN 9.3 g/dL (10.0-15.0); IMMATURE GRANULOCYTE % 0.3 %; LYMPHOCYTE # 0.8 K/uL (0.8-4.0); LYMPHOCYTE % 10.9 %; MCH 29.2 pg (27.0-34.0); MCHC 30.8 gm/dL (32.0-36.5); MCV 94.7 fl (83.0-98.0); MONOCYTE # 0.7 K/uL (0.0-1.0); MONOCYTE % 8.9 %; MPV 10.5 fl (9.4-12.4); NEUTROPHIL # (ANC) 5.8 K/uL (1.8-7.8); NRBC % 0 /100WBC (0-0.00); PLATELET COUNT 108 K/uL (150-450); RBC 3.19 M/uL (3.00-5.00); RDW-CV 14.1 % (11.9-14.6); WBC 7.4 K/uL (4.0-11.0)
[2016-08-25 05:28] LABS: CALCIUM 7.2 mg/dL (8.5-10.5)
[2016-08-26 05:27] LABS: BASOPHIL % 0.4 %; EOSINOPHIL # 0.3 K/uL (0.0-0.5); EOSINOPHIL % 3.9 %; HEMATOCRIT 29.7 % (30.0-46.0); HEMOGLOBIN 9.4 g/dL (10.0-15.0); IMMATURE GRANULOCYTE % 0.4 %; LYMPHOCYTE # 0.9 K/uL (0.8-4.0); LYMPHOCYTE % 12.7 %; MCH 29.9 pg (27.0-34.0); MCHC 31.6 gm/dL (32.0-36.5); MCV 94.6 fl (83.0-98.0); MONOCYTE # 0.5 K/uL (0.0-1.0); MONOCYTE % 6.8 %; MPV 10.7 fl (9.4-12.4); NEUTROPHIL # (ANC) 5.5 K/uL (1.8-7.8); NEUTROPHIL % 75.8 %; NRBC % 0 /100WBC (0-0.00); PLATELET COUNT 120 K/uL (150-450); RBC 3.14 M/uL (3.00-5.00); RDW-CV 14.5 % (11.9-14.6); WBC 7.2 K/uL (4.0-11.0)
[2016-08-26 05:46] LABS: ALBUMIN 2.8 gm/dL (3.5-5.0); ALK PHOS 70 IU/L (33-138); ALT 16 IU/L (12-78); ANION GAP 8.6 (10.0-19.0); AST 16 IU/L (10-40); BLOOD UREA NITROGEN 7 mg/dL (6-24); CALCIUM 7.9 mg/dL (8.5-10.5); CHLORIDE 108 mMol/L (96-110); CO2 30 mMol/L (22-32); CREATININE 0.4 mg/dL (0.5-1.1); ESTIMATED GFR (MDRD EQUATION) > 60; POTASSIUM 3.6 mMol/L (3.7-5.1); SODIUM 143 mMol/L (135-145); TOTAL BILIRUBIN 0.6 mg/dL (0.0-1.5); TOTAL PROTEIN 6.3 g/dL (6.0-8.4)
[2016-08-27 04:44] LABS: BASOPHIL % 0.4 %; EOSINOPHIL # 0.3 K/uL (0.0-0.5); EOSINOPHIL % 4.3 %; HEMATOCRIT 30.8 % (30.0-46.0); HEMOGLOBIN 9.8 g/dL (10.0-15.0); IMMATURE GRANULOCYTE % 0.4 %; LYMPHOCYTE # 1.1 K/uL (0.8-4.0); LYMPHOCYTE % 16.5 %; MCH 29.9 pg (27.0-34.0); MCHC 31.8 gm/dL (32.0-36.5); MCV 93.9 fl (83.0-98.0); MONOCYTE # 0.5 K/uL (0.0-1.0); MPV 10.1 fl (9.4-12.4); NEUTROPHIL # (ANC) 4.8 K/uL (1.8-7.8); NEUTROPHIL % 70.4 %; NRBC % 0 /100WBC (0-0.00); PLATELET COUNT 141 K/uL (150-450); RBC 3.28 M/uL (3.00-5.00); RDW-CV 14.6 % (11.9-14.6); WBC 6.8 K/uL (4.0-11.0)
[2016-08-27 05:01] LABS: ALBUMIN 2.8 gm/dL (3.5-5.0); ALK PHOS 67 IU/L (33-138); ALT 17 IU/L (12-78); AST 13 IU/L (10-40); BLOOD UREA NITROGEN 8 mg/dL (6-24); CALCIUM 8.4 mg/dL (8.5-10.5); CHLORIDE 110 mMol/L (96-110); CO2 27 mMol/L (22-32); CREATININE 0.5 mg/dL (0.5-1.1); ESTIMATED GFR (MDRD EQUATION) > 60; SODIUM 142 mMol/L (135-145); TOTAL BILIRUBIN 0.6 mg/dL (0.0-1.5); TOTAL PROTEIN 6.3 g/dL (6.0-8.4)
[2016-08-28 03:59] LABS: BASOPHIL % 0.4 %; EOSINOPHIL # 0.2 K/uL (0.0-0.5); EOSINOPHIL % 3.3 %; HEMATOCRIT 30.7 % (30.0-46.0); HEMOGLOBIN 9.8 g/dL (10.0-15.0); IMMATURE GRANULOCYTE % 0.6 %; LYMPHOCYTE # 1.4 K/uL (0.8-4.0); LYMPHOCYTE % 20.4 %; MCHC 31.9 gm/dL (32.0-36.5); MCV 93.9 fl (83.0-98.0); MONOCYTE # 0.6 K/uL (0.0-1.0); MONOCYTE % 8.1 %; MPV 9.5 fl (9.4-12.4); NEUTROPHIL # (ANC) 4.7 K/uL (1.8-7.8); NEUTROPHIL % 67.2 %; NRBC % 0 /100WBC (0-0.00); PLATELET COUNT 165 K/uL (150-450); RBC 3.27 M/uL (3.00-5.00); RDW-CV 14.7 % (11.9-14.6)
[2016-08-28 04:17] LABS: ALBUMIN 2.8 gm/dL (3.5-5.0); ALK PHOS 68 IU/L (33-138); ALT 18 IU/L (12-78); ANION GAP 10.9 (10.0-19.0); AST 17 IU/L (10-40); CALCIUM 8.4 mg/dL (8.5-10.5); CHLORIDE 108 mMol/L (96-110); CO2 28 mMol/L (22-32); CREATININE 0.6 mg/dL (0.5-1.1); ESTIMATED GFR (MDRD EQUATION) > 60; POTASSIUM 3.9 mMol/L (3.7-5.1); SODIUM 143 mMol/L (135-145); TOTAL BILIRUBIN 0.6 mg/dL (0.0-1.5); TOTAL PROTEIN 6.3 g/dL (6.0-8.4)
[2016-08-28 04:19] LABS: BLOOD UREA NITROGEN 13 mg/dL (6-24)
[2016-08-29 04:12] LABS: BASOPHIL % 0.3 %; EOSINOPHIL # 0.2 K/uL (0.0-0.5); EOSINOPHIL % 2.7 %; HEMATOCRIT 33.2 % (30.0-46.0); HEMOGLOBIN 10.5 g/dL (10.0-15.0); IMMATURE GRANULOCYTE % 0.3 %; LYMPHOCYTE # 1.3 K/uL (0.8-4.0); LYMPHOCYTE % 18.6 %; MCH 29.8 pg (27.0-34.0); MCHC 31.6 gm/dL (32.0-36.5); MCV 94.3 fl (83.0-98.0); MONOCYTE # 0.5 K/uL (0.0-1.0); MONOCYTE % 7.8 %; MPV 10.2 fl (9.4-12.4); NEUTROPHIL # (ANC) 4.8 K/uL (1.8-7.8); NEUTROPHIL % 70.3 %; NRBC % 0 /100WBC (0-0.00); RBC 3.52 M/uL (3.00-5.00); WBC 6.8 K/uL (4.0-11.0)
[2016-08-29 04:16] LABS: PLATELET COUNT 201 K/uL (150-450)
[2016-08-29 04:28] LABS: ALBUMIN 2.9 gm/dL (3.5-5.0); ALK PHOS 70 IU/L (33-138); ALT 19 IU/L (12-78); ANION GAP 11.4 (10.0-19.0); AST 16 IU/L (10-40); BLOOD UREA NITROGEN 15 mg/dL (6-24); CALCIUM 8.7 mg/dL (8.5-10.5); CHLORIDE 106 mMol/L (96-110); CO2 28 mMol/L (22-32); CREATININE 0.7 mg/dL (0.5-1.1); ESTIMATED GFR (MDRD EQUATION) > 60; POTASSIUM 3.4 mMol/L (3.7-5.1); SODIUM 142 mMol/L (135-145); TOTAL BILIRUBIN 0.6 mg/dL (0.0-1.5); TOTAL PROTEIN 6.8 g/dL (6.0-8.4)
[2016-08-29 15:52] LABS: BILIRUBIN URINE NEGATIVE (NEGATIVE); BLOOD URINE 150 /UL (NEGATIVE); COLOR URINE YELLOW (YELLOW); GLUCOSE URINE NEGATIVE (NEGATIVE); KETONE URINE NEGATIVE (NEGATIVE); LEUKOCYTES URINE 500 /UL (NEGATIVE); NITRITE URINE POSITIVE (NEGATIVE); PROTEIN URINE 30 mg/dL (NEGATIVE); TURBIDITY URINE 2+ (CLEAR); UROBILINOGEN URINE NORMAL (NORMAL)
[2016-08-29 16:06] LABS: WBC URINE FULL FIELD #/HPF (NEGATIVE)
[2016-08-29 16:07] LABS: BACTERIA URINE MANY (NEGATIVE); MUCUS URINE 1+ (NEGATIVE)
[2016-08-30 04:10] LABS: BASOPHIL % 0.6 %; EOSINOPHIL # 0.2 K/uL (0.0-0.5); EOSINOPHIL % 2.5 %; HEMATOCRIT 31.6 % (30.0-46.0); IMMATURE GRANULOCYTE % 0.6 %; LYMPHOCYTE # 1.4 K/uL (0.8-4.0); LYMPHOCYTE % 20.7 %; MCH 29.7 pg (27.0-34.0); MCHC 31.6 gm/dL (32.0-36.5); MCV 93.8 fl (83.0-98.0); MONOCYTE # 0.7 K/uL (0.0-1.0); MONOCYTE % 9.6 %; NEUTROPHIL # (ANC) 4.5 K/uL (1.8-7.8); NRBC % 0 /100WBC (0-0.00); PLATELET COUNT 215 K/uL (150-450); RBC 3.37 M/uL (3.00-5.00); WBC 6.8 K/uL (4.0-11.0)
[2016-08-30 04:33] LABS: ALBUMIN 2.9 gm/dL (3.5-5.0); ALK PHOS 64 IU/L (33-138); ALT 17 IU/L (12-78); ANION GAP 9.2 (10.0-19.0); AST 11 IU/L (10-40); BLOOD UREA NITROGEN 12 mg/dL (6-24); CALCIUM 9.4 mg/dL (8.5-10.5); CHLORIDE 108 mMol/L (96-110); CO2 29 mMol/L (22-32); CREATININE 0.6 mg/dL (0.5-1.1); ESTIMATED GFR (MDRD EQUATION) > 60; POTASSIUM 4.2 mMol/L (3.7-5.1); SODIUM 142 mMol/L (135-145); TOTAL PROTEIN 6.5 g/dL (6.0-8.4)
[2016-08-30 04:39] LABS: TOTAL BILIRUBIN 0.4 mg/dL (0.0-1.5)
[2016-08-30] MEDS ORDERED: OXYGEN M-15 INH (09:00)
[2016-08-31 05:11] LABS: BASOPHIL % 0.6 %; EOSINOPHIL # 0.3 K/uL (0.0-0.5); EOSINOPHIL % 4.5 %; HEMATOCRIT 32.9 % (30.0-46.0); HEMOGLOBIN 10.4 g/dL (10.0-15.0); IMMATURE GRANULOCYTE % 0.3 %; LYMPHOCYTE # 1.2 K/uL (0.8-4.0); LYMPHOCYTE % 16.8 %; MCH 29.5 pg (27.0-34.0); MCHC 31.6 gm/dL (32.0-36.5); MCV 93.5 fl (83.0-98.0); MONOCYTE # 0.7 K/uL (0.0-1.0); MONOCYTE % 9.5 %; MPV 9.6 fl (9.4-12.4); NEUTROPHIL # (ANC) 4.7 K/uL (1.8-7.8); NEUTROPHIL % 68.3 %; NRBC % 0 /100WBC (0-0.00); PLATELET COUNT 230 K/uL (150-450); RBC 3.52 M/uL (3.00-5.00); WBC 6.9 K/uL (4.0-11.0)
[2016-08-31 05:32] LABS: ALBUMIN 2.9 gm/dL (3.5-5.0); ALK PHOS 66 IU/L (33-138); ALT 16 IU/L (12-78); ANION GAP 8.4 (10.0-19.0); AST 12 IU/L (10-40); BLOOD UREA NITROGEN 18 mg/dL (6-24); CALCIUM 9.7 mg/dL (8.5-10.5); CHLORIDE 104 mMol/L (96-110); CO2 32 mMol/L (22-32); CREATININE 0.7 mg/dL (0.5-1.1); ESTIMATED GFR (MDRD EQUATION) > 60; POTASSIUM 4.4 mMol/L (3.7-5.1); SODIUM 140 mMol/L (135-145); TOTAL PROTEIN 6.8 g/dL (6.0-8.4)
[2016-08-31 05:35] LABS: TOTAL BILIRUBIN 0.5 mg/dL (0.0-1.5)
[2016-09-03 03:07] LABS: BILIRUBIN URINE NEGATIVE (NEGATIVE); BLOOD URINE 25 /UL (NEGATIVE); GLUCOSE URINE NEGATIVE (NEGATIVE); KETONE URINE NEGATIVE (NEGATIVE); LEUKOCYTES URINE 100 /UL (NEGATIVE); NITRITE URINE NEGATIVE (NEGATIVE); PROTEIN URINE NEGATIVE (NEGATIVE); UROBILINOGEN URINE NORMAL (NORMAL)
[2016-09-03 03:11] LABS: COLOR URINE YELLOW (YELLOW); TURBIDITY URINE CLEAR (CLEAR)
[2016-09-03 03:45] LABS: BACTERIA URINE FEW (NEGATIVE); RENAL EPITH URINE 0-2 #/HPF (NEGATIVE)
[2016-10-05] MEDS ORDERED: ARTIFICIAL TEAR15 M2 OPHTH (16:04)
[2016-10-05] MEDS ORDERED: COLACE100 MG PO (16:05)
[2016-10-05] MEDS ORDERED: DULCOLAX10 MG R (16:06)
[2016-10-05] MEDS ORDERED: LACTINEX (FLORA1 TAB PO (16:07)
[2016-10-05] MEDS ORDERED: LIPITOR20 M1 PO (16:08)
[2016-10-05] MEDS ORDERED: LORTAB 7.5-3251 EACH PO (16:09)
[2016-10-05] MEDS ORDERED: MELATONIN3 MG PO (16:11)
[2016-10-05] MEDS ORDERED: MYLANTA (MAG-AL30 ML PO (16:12)
[2016-10-05] MEDS ORDERED: NORVASC5 MG PO (16:13)
[2016-10-05] MEDS ORDERED: THERA-VITE W/ B1 TAB PO (16:14)
[2016-10-05] MEDS ORDERED: PLAVIX75 MG PO (16:19)
[2016-10-05] MEDS ORDERED: OSCIMIN SR0.375 MG PO (16:30)
[2016-10-05] MEDS ORDERED: CALCIUM 500 +1 EAC1 PO (16:30)
[2016-10-05] MEDS ORDERED: MIRALAX PO527 GM/BOT PO (16:31)
[2016-10-05] MEDS ORDERED: PROTONIX40 M1 PO (16:31)
[2016-10-05] MEDS ORDERED: Q-PAP325 MG PO (16:32)
[2016-10-05] MEDS ORDERED: VITAMIN D1000 UNI1 PO (16:33)
== END 2016-09-04 12:10 | DRG 23 ==
LOC: GICU 01:54 → GNTU 01:54 → GICU 08-24 11:56 → GNTU 08-25 15:53
PROVIDERS: Internal Medicine; Internal Medicine Interventional Cardiology; Neurological Surgery; ADMIT Internal Medicine
PROC: 00C73ZZ Extirpation of Matter from Cerebral Hemisphere, Percutaneous Approach (ICD-10-PCS; principal; 2016-08-24)
DX: I61.8 Other nontraumatic intracerebral hemorrhage (principal); I21.4 Non-ST elevation (NSTEMI) myocardial infarction; G93.40 Encephalopathy, unspecified; J96.10 Chronic respiratory failure, unspecified whether with hypoxia or hypercapnia; S32.049A Unspecified fracture of fourth lumbar vertebra, initial encounter for closed fracture; R41.4 Neurologic neglect syndrome; S22.9XXA Fracture of bony thorax, part unspecified, initial encounter for closed fracture; I48.0 Paroxysmal atrial fibrillation; I10 Essential (primary) hypertension; N39.0 Urinary tract infection, site not specified; G81.94 Hemiplegia, unspecified affecting left nondominant side; I44.0 Atrioventricular block, first degree; R29.6 Repeated falls; I25.10 Atherosclerotic heart disease of native coronary artery without angina pectoris; R26.9 Unspecified abnormalities of gait and mobility; R41.0 Disorientation, unspecified; M48.06 Spinal stenosis, lumbar region; K21.9 Gastro-esophageal reflux disease without esophagitis; G47.00 Insomnia, unspecified; W19.XXXA Unspecified fall, initial encounter; K59.00 Constipation, unspecified; B96.20 Unspecified Escherichia coli [E. coli] as the cause of diseases classified elsewhere; E87.6 Hypokalemia; Z66 Do not resuscitate; Z86.718 Personal history of other venous thrombosis and embolism; Z79.01 Long term (current) use of anticoagulants; Z87.891 Personal history of nicotine dependence; Z86.711 Personal history of pulmonary embolism; Z95.5 Presence of coronary angioplasty implant and graft
CPT/HCPCS: C1713; C1763; C9399; J0131; J0360; J0690; J0696; J1170; J2597; J3010; J7030; J7040; J7050

== ENCOUNTER → 2016-08-23 | Outpatient (CLI) | payer MEDICARE, BC ==
[~2016-08-23] MED LIST: ADVIL200 MG PO; AGGRENOX 25 MG1 EACH PO; ALEVE220 MG PO; AMBIEN10 MG PO; AMBIEN5 MG PO; ARTIFICIAL TEAR15 M2 OPHTH; B COMPLEX1 EACH PO; CALCIUM 500 +1 EAC1 PO; CALCIUM 500 +1 EACH PO; CLOBETASOL EMOL15 GM TOP; COLACE100 MG PO; COUMADIN 4MG **4 MG PO; DULCOLAX10 MG R; DURAGESIC 25MC25 MCG TRANS; FISH OIL 1,0001 EAC1 PO; FLAX SEED OIL1000 MG PO; IMODIUM A-D2 MG PO; LACTINEX (FLORA1 TAB PO; LEXAPRO20 MG PO; LIPITOR20 M1 PO; LORTAB 7.5-3251 EACH PO; LYRICA 100MG C100 MG PO; LYRICA 50MG CAP50 MG PO; MAALOX ADVANCE355 ML PO; MELATONIN3 MG PO; MILK OF MA400 MG/5 M PO; MIRALAX PO527 GM/BOT PO; MYLANTA (MAG-AL30 ML PO; NITROSTAT0.4 MG SL; NORCO 5-325 TA1 EACH PO; NORVASC5 MG PO; OSCIMIN SR0.375 MG PO; OXYGEN M-15 INH; PLAVIX75 MG PO; PRESERVISION A1 EACH PO; PROTONIX40 M1 PO; PROTONIX40 MG PO; Q-PAP325 MG PO; ROBITUSSIN100 MG/5 M PO; THERA-VITE W/ B1 TAB PO; TYLENOL325 MG PO; VITAMIN D1000 UNI1 PO; VITAMIN D1000 UNIT PO
== END | disposition disaster alternative care site (69) ==
LOC: GAMB 01:47
DX: S06.300A Unspecified focal traumatic brain injury without loss of consciousness, initial encounter (principal); Z97.8 Presence of other specified devices
CPT/HCPCS: A0422; A0425; A0428

== ENCOUNTER → 2016-09-26 | Outpatient (CLI) | payer MEDICARE, BC | LOC: GRAD 08:25 | DX: S06.360D Traumatic hemorrhage of cerebrum, unspecified, without loss of consciousness, subsequent encounter (principal); M41.9 Scoliosis, unspecified; M43.5X6 Other recurrent vertebral dislocation, lumbar region ==

== ENCOUNTER → 2016-10-09 | Outpatient (CLI) | payer MEDICARE, BC ==
[2016-10-09 14:15] LABS: BASOPHIL % 0.5 %; EOSINOPHIL # 0.1 K/uL (0.0-0.5); EOSINOPHIL % 2.2 %; HEMOGLOBIN 12.9 g/dL (10.0-15.0); IMMATURE GRANULOCYTE % 0.5 %; LYMPHOCYTE # 1.2 K/uL (0.8-4.0); LYMPHOCYTE % 21.8 %; MCV 92.1 fl (83.0-98.0); MONOCYTE # 0.4 K/uL (0.0-1.0); MONOCYTE % 6.7 %; MPV 10.2 fl (9.4-12.4); NEUTROPHIL # (ANC) 3.8 K/uL (1.8-7.8); NEUTROPHIL % 68.3 %; NRBC % 0 /100WBC (0-0.00); RDW-CV 13.8 % (11.9-14.6); WBC 5.5 K/uL (4.0-11.0)
[2016-10-09 14:16] LABS: HEMATOCRIT 41.8 % (30.0-46.0); MCH 28.4 pg (27.0-34.0); MCHC 30.9 gm/dL (32.0-36.5); PLATELET COUNT 132 K/uL (150-450); RBC 4.54 M/uL (3.00-5.00)
[2016-10-09 14:22] LABS: INR - (THERAPEUTIC) 0.94 (0.92-1.07); PROTIME 9.9 SECONDS (9.8-11.4)
[2016-10-09 14:30] LABS: ALBUMIN 3.8 gm/dL (3.5-5.0); BLOOD UREA NITROGEN 13 mg/dL (6-24); CALCIUM 9.5 mg/dL (8.5-10.5); CHLORIDE 105 mMol/L (96-110); CO2 31 mMol/L (22-32); CREATININE 0.7 mg/dL (0.5-1.1); ESTIMATED GFR (MDRD EQUATION) > 60; PHOSPHORUS 2.6 mg/dL (2.5-4.9); SODIUM 140 mMol/L (135-145)
== END | disposition disaster alternative care site (69) ==
LOC: GOPD 10-05
PROVIDERS: Radiology Diagnostic Radiology
PROC: 0QS03ZZ Reposition Lumbar Vertebra, Percutaneous Approach (ICD-10-PCS; principal; 2016-10-09)
PROC: 0QU03JZ Supplement Lumbar Vertebra with Synthetic Substitute, Percutaneous Approach (ICD-10-PCS; 2016-10-09)
DX: S32.040A Wedge compression fracture of fourth lumbar vertebra, initial encounter for closed fracture (principal); I44.0 Atrioventricular block, first degree; R94.31 Abnormal electrocardiogram [ECG] [EKG]; X58.XXXA Exposure to other specified factors, initial encounter
CPT/HCPCS: C1713; J2001; J7030